=== PATIENT | female | born 1995 | race Caucasian/White ===

== ENCOUNTER 2020-10-11 08:00 | Outpatient (CLI) | payer BC ==
[2020-10-11 19:54] LABS: BACTERIAL VAGINOSIS DNA POSITIVE (NEGATIVE); CANDIDA GLABRATA DNA NEGATIVE (NEGATIVE); CANDIDA GROUP DNA POSITIVE (NEGATIVE); CANDIDA KRUSEI DNA NEGATIVE (NEGATIVE); TRICHOMONAS VAGINALIS DNA NEGATIVE (NEGATIVE)
[2020-10-11 21:17] LABS: CHLAMYDIA TRACHOMATIS DNA NEGATIVE (NEGATIVE); NEISSERIA GONORRHOEAE DNA NEGATIVE (NEGATIVE); TRICHOMONAS VAGINALIS DNA NEGATIVE (NEGATIVE)
== END 2020-10-11 23:59 | disposition home or self-care (01) ==
LOC: LAB.R 08:00
PROVIDERS: ATTEND Physician Assistant Medical
DX: N76.0 Acute vaginitis (principal)
CPT/HCPCS: 87491; 87591; 87661; 87801

== ENCOUNTER 2020-11-21 09:45 | Outpatient (CLI) | payer BC ==
--- NOTE | 2020-11-21 11:07 | Ultrasound Report ---
PROCEDURE: Pelvic w/Transvaginal INDICATIONS: IUD SURVUILLANCE TECHNIQUE: Real-time scanning was performed of the pelvic organs, with image documentation. Additional endovagi nal scanning was necessary due to incomplete visualization of the adnexal and endometrial structures by transabdominal scanning. COMPARISON: None. FINDINGS: No pathologic free abdominal or pelvic fluid. Uterus: Uterus is normal in size at 7.3 x 3.9 x 4.1 cm. The endometrium measures 5 mm in combined t hickness. An intrauterine device appears to be in place within the endometrial cavity. Ovaries: Right ovary measures 3.8 x 2.0 x 1.6 cm. Right ovarian volume measures 6.3 mL. Likely 1.0 c m involuting right functional cyst. Left ovary measures 3.6 x 2.1 x 1.9 cm. Left ovarian volume measu res 7.6 mL. No suspicious ovarian/adnexal mass lesions. IMPRESSION: 1. An intrauterine device appears to be appropriately positioned within the endometrial cavity. 2. Otherwise, unremarkable pelvic ultrasound. Reviewed by: Taqueria Robison MD on 11/21/2020 11:06 AM PDT Approved by: Taqueria Robison MD on 11/21/2020 11:06 AM PDT Station ID: [id number]
== END 2020-11-21 09:46 | disposition home or self-care (01) ==
LOC: DI 09:45
PROVIDERS: ATTEND Nurse Practitioner Obstetrics & Gynecology
DX: Z30.431 Encounter for routine checking of intrauterine contraceptive device (principal)

== ENCOUNTER 2020-12-31 08:00 | Outpatient (CLI) | payer BC ==
[2020-12-31 17:06] LABS: B. PARAPERTUSSIS- RESP PCR PAN NOT DETECTED; B. PERTUSSIS- RESP PCR PANEL NOT DETECTED; C. PNEUMONIAE- RESP PCR PANEL NOT DETECTED; CORONAVIRUS 229E-RESP PCR NOT DETECTED; CORONAVIRUS HKU1-RESP PCR NOT DETECTED; CORONAVIRUS NL63-RESP PCR NOT DETECTED; CORONAVIRUS OC43-RESP PCR NOT DETECTED; HUMAN METAPNEUMOVIRUS NOT DETECTED; INFLUENZA A- RESP PCR PANEL NOT DETECTED; INFLUENZA B - RESP PCR PANEL NOT DETECTED; M. PNEUMONIAE- RESP PCR PANEL NOT DETECTED; PARAINFLUENZA VIRUS 1 NOT DETECTED; PARAINFLUENZA VIRUS 2 NOT DETECTED; PARAINFLUENZA VIRUS 3 NOT DETECTED; PARAINFLUENZA VIRUS 4 NOT DETECTED; RHINOVIRUS/ENTEROVIRUS NOT DETECTED; RSV- RESP PCR PANEL NOT DETECTED; SARS-CoV-2 -RESP PCR PANEL NOT DETECTED
== END 2020-12-31 23:59 | disposition home or self-care (01) ==
LOC: COV 08:00
PROVIDERS: ATTEND Physician Assistant
DX: J06.9 Acute upper respiratory infection, unspecified (principal); Z20.822 Contact with and (suspected) exposure to COVID-19
CPT/HCPCS: 0202U

== ENCOUNTER 2021-08-17 11:29 | Emergency (ER) | payer BC ==
[2021-08-17] MEDS ORDERED: DEXAMETHASONE 10 MG/ML VIAL PO STA (11:51)
[2021-08-17] MEDS ORDERED: KETOROLAC 60 MG/2 ML VIAL IM STA (11:51)
[2021-08-17] MEDS ORDERED: CHERRY SYRUP 10 ML UDC PO ONE (11:51)
--- NOTE | 2021-08-17 12:39 | ED Physician Documentation ---
PD HPI BACK PAIN - Stated complaint Stated Complaint: BACK PX - Chief complaint Chief Complaint: Back Pain - History obtained from History obtained from: Patient - History of Present Illness Timing - onset: How many weeks ago (1) Timing - duration: Weeks (1) Timing - details: Gradual onset, Still present, Other (worse overnight) Location: Lower, Right Quality: Pain, Spasm, Sharp, Similar to prior episodes Associated symptoms: Numbness (to the right hand and both legs.). No: Fever, Weakness, Incontinent of urine, Unable to urinate, Hematuria, Incontinent of stool Improves with: Rest, Ice, Meds Contributing factors: Lifting, Twisting, Other (body weight to the lower back placed by partner yesterday worse this morning) Similar symptoms before: Diagnosis (lumbar pain) Recently seen: Not recently seen - Additional information Additional information: 26 y/o female with chronic low back pain has increased pain and she has had some one place their weight on her lower back and the pain is worse. She is not able to move this morning without severe pain. She had relief of pain with aleve yesterday. Today she is hyperventilating and she is complaining of numbness to the right hand, lip and both legs. Review of Systems Constitutional: denies: Fever Nose: denies: Congestion Throat: denies: Sore throat Cardiac: denies: Chest pain / pressure Respiratory: denies: Dyspnea, Cough GI: denies: Abdominal Pain, Nausea, Vomiting : denies: Dysuria, Frequency Skin: denies: Rash Musculoskeletal: reports: Back pain. denies: Neck pain Neurologic: reports: Numbness (to right hand lips and both legs). denies: Generalized weakness, Focal weakness PD PAST MEDICAL HISTORY - Present Medications Home Medications: Ambulatory Orders Medication Instructions Recorded Confirmed Cyclobenzaprine [Flexeril] 10 mg PO TID PRN #20 tablet 08/17/21 HYDROcod/ACETAM 5/325 [[place] 5/325] 1 - 2 tablet PO Q6H PRN #14 tablet 08/17/21 - Allergies Allergies/Adverse Reactions: Allergies Allergy/AdvReac Type Severity Reaction Status Date / Time cat dander AdvReac Respiratory Verified 08/17/21 11:37 PD ED PE NORMAL - Vitals Vital signs reviewed: Yes (tachy and hypertensive) - General General: Alert and oriented X 3, Well developed/nourished, Other (appears to be in distress with tears in the eyes and hyperventilation ) - HEENT HEENT: Atraumatic, PERRL, EOMI - Neck Neck: Supple, no meningeal sign - Respiratory Respiratory: No respiratory distress - Back Back: No CVA TTP, Other (point tenderness to the midline back and to the paraspinous muscles of the lower back. ) - Derm Derm: Normal color, Warm and dry, No rash - Extremities Extremities: No deformity, No edema - Neuro Neuro: Alert and oriented X 3, licensed life and health agent 2-12 intact, No motor deficit, No sensory deficit, Normal speech Eye Opening: Spontaneous Motor: Obeys Commands Verbal: Oriented GCS Score: 15 - Psych Psych: Other (mood is painful affect is labile ) Results - Vitals Vitals: Vital Signs - 24 hr 08/17/21 08/17/21 11:32 12:39 Temperature 36.5 C Heart Rate 139 H 120 H Respiratory 18 20 Rate Blood Pressure 175/97 H 121/63 O2 Saturation 100 97 Oxygen O2 Source Room air PD MEDICAL DECISION MAKING - ED course Complexity details: reviewed results, re-evaluated patient, considered differential, d/w patient ED course: 26-year-old female with prior incidence of low back pain has severe low back pain today that is worse after her partner attempted to do some chiropractic manipulation to her lower back by placing his weight on her lower back. Today she is in tears and she is hyperventilating when she arrives to the emergency department she is complaining of numbness to her legs and to her right hand and to her lips. She took more than an hour to try to get out of bed this morning. She did find that she had relief with Aleve yesterday. Today in the emergency department she appears to have significant spasm to her lower back she is administered dexamethasone and Toradol she has marked improvement in her pain and is no longer hyperventilating. She has some improvement of the numbness. Departure - Departure Disposition: 01 Home, Self Care Clinical Impression: Sciatica Qualifiers: Laterality: bilateral Qualified Code(s): M54.31 - Sciatica, right side Condition: Stable Instructions: ED Sciatica Follow-Up: [facility] [Provider Group] Prescriptions: Cyclobenzaprine [Flexeril] 10 mg PO TID PRN #20 tablet PRN Reason: Spasms HYDROcod/ACETAM 5/325 [[place] 5/325] 1 - 2 tablet PO Q6H PRN #14 tablet PRN Reason: Pain Comments: Arina, it appears the pain you are having in her back is related to a pinched nerve and the recommendation is to use ice and stretch use pain medication as needed and my recommendation is to use Aleve as you have in the past and make sure you take this with food and if you do not have adequate pain relief without use the narcotic pain reliever. Be aware this is something you cannot drive or operate machinery after taking it, it can be habit-forming and it will make you constipated.Medications have been E scribed to Alejandra in [place] Discharge Date/Time: 08/17/21 12:49
[2021-08-17 12:41] VITALS: BP 121/63
== END 2021-08-17 12:49 | disposition home or self-care (01) ==
LOC: ED 11:29
DX: M54.31 Sciatica, right side (principal); M54.50 Low back pain, unspecified; G89.29 Other chronic pain; R06.4 Hyperventilation
CPT/HCPCS: 96372; 99283; A9270

== ENCOUNTER 2021-09-04 10:40 | Outpatient (CLI) | payer BC ==
--- NOTE | 2021-09-04 13:10 | XRAY Report ---
PROCEDURE: Cervical Spine 2 View INDICATIONS: NECK PAIN TECHNIQUE: 3 view(s) of the cervical spine were acquired. COMPARISON: None. FINDINGS: Bones: No fractures or dislocations to the superior endplate of T1 level. The lateral masses of C1 appear intact on the odontoid view. No suspicious bony lesions. There is straightening of the cervic al spine lordosis which could be due to positioning or spasm. Soft tissues: No prevertebral soft tissue swelling. IMPRESSION: There is straightening of the cervical spine lordosis which could be due to positioning or muscle spa sm. No fracture. Reviewed by: Baldemar Jimenez MD on 09/04/2021 1:09 PM PST Approved by: Baldemar Jimenez MD on 09/04/2021 1:09 PM PST Station ID: [id number]
--- NOTE | 2021-09-04 15:13 | XRAY Report ---
PROCEDURE: Thoracic Spine 2 View INDICATIONS: BACK PAIN TECHNIQUE: 3 views of the thoracic spine were acquired. COMPARISON: None. FINDINGS: Bones: No acute compression fractures or malalignment. No suspicious bony lesions. 12 pairs of rib s are noted, and appear intact where visualized. Mild multilevel spondylosis most pronounced in the thoracolumbar junction Soft tissues: No paravertebral stripe thickening. IMPRESSION: Thoracic spine without acute fracture or malalignment. Mild multilevel spondylosis. Reviewed by: Taqueria Robison MD on 09/04/2021 3:12 PM PST Approved by: Taqueria Robison MD on 09/04/2021 3:12 PM PST Station ID: [id number]
--- NOTE | 2021-09-04 16:57 | XRAY Report ---
PROCEDURE: Lumbar Spine 2 View INDICATIONS: LOW BACK PAIN TECHNIQUE: 2 views of the lumbar spine were acquired. COMPARISON: None. FINDINGS: Bones: 5 [id number] vertebrae are present. There is normal bony alignment. No vertebral body compression fractures. No suspicious bony lesions. Scheuermann's disease involves the anterosuperio r L3 endplate. Soft tissues: Overlying bowel gas pattern is normal. No suspicious soft tissue calcifications. IMPRESSION: No acute fracture. No osseous lesion. If symptoms and/or clinical suspicion for patholog y continue, further assessment with repeat plain films, or advanced imaging (e.g., CT, MRI, or bone s can) is recommended for further assessment. Reviewed by: Mela Dunlap MD on 09/04/2021 4:56 PM PST Approved by: Mela Dunlap MD on 09/04/2021 4:56 PM [facility] Station ID: [id number]
== END 2021-09-04 10:41 | disposition home or self-care (01) ==
LOC: DI 10:40
PROVIDERS: ATTEND Nurse Practitioner Family
DX: M47.814 Spondylosis without myelopathy or radiculopathy, thoracic region (principal); M54.50 Low back pain, unspecified; M54.2 Cervicalgia